=== PATIENT | female | born 1945 | race Caucasian/White ===

== ENCOUNTER 2016-12-01 06:10 | Day surgery (SDC) | payer MEDICARE ==
[~2016-12-01] VITALS: Ht 154.9 cm; Wt 80.0 kg
[2016-12-01] MEDS ORDERED: SODIUM CHLORIDE 0.9% 1,000 ML IV SCH (06:40)
[2016-12-01 07:08] VITALS: BP 115/61
[2016-12-01] MEDS ORDERED: MIDAZOLAM 1 MG/ML, 5ML ONE (07:56)
[2016-12-01] MEDS ORDERED: FENTANYL PF 100 MCG/2ML ONE (07:56)
== END 2016-12-01 10:30 ==
LOC: OUT 06:10
PROVIDERS: ATTEND Internal Medicine Nephrology
DX: I12.9 Hypertensive chronic kidney disease with stage 1 through stage 4 chronic kidney disease, or unspecified chronic kidney disease (principal); N18.4 Chronic kidney disease, stage 4 (severe); Z88.1 Allergy status to other antibiotic agents
CPT/HCPCS: 36415; 50200; 77012; 85610; 88300; 88329; 99156; 99157; J2250; J3010

== ENCOUNTER 2017-05-01 07:35 | Day surgery (SDC) | payer MEDICARE ==
[~2017-05-01] VITALS: Ht 154.9 cm; Wt 72.0 kg
[~2017-05-01 07:35] MED LIST: HEPARIN 1,000 UNITS/ML, 10ML ONE; PROTAMINE SULFATE 10 MG/ML, 5ML ONE
[2017-05-01 08:05] VITALS: BP 124/58
[2017-05-01] MEDS ORDERED: SODIUM CHLORIDE 0.9% 1,000 ML IV SCH (08:06)
[2017-05-01] MEDS ORDERED: PLEASE ENTER ALLERGIES MC SCH ×2 (09:00)
[2017-05-01] MEDS ORDERED: PLEASE ENTER HEIGHT AND WEIGHT MC SCH (09:00)
[2017-05-01] MEDS ORDERED: FURO80TA3 PO (09:03)
[2017-05-01] MEDS ORDERED: AMLO10TA2 PO (09:03)
[2017-05-01] MEDS ORDERED: VENTOLIN HFA (09:03)
[2017-05-01] MEDS ORDERED: FLUT1DIS3 INH (09:03)
[2017-05-01] MEDS ORDERED: ALBUTEROL (09:03)
[2017-05-01] MEDS ORDERED: ERGO500017 PO (09:03)
[2017-05-01] MEDS ORDERED: LEVO100T5 PO (09:03)
[2017-05-01] MEDS ORDERED: CARV-39 PO (09:03)
[2017-05-01] MEDS ORDERED: FENTANYL PF 100 MCG/2ML ONE (10:23)
[2017-05-01] MEDS ORDERED: PROPOFOL 10 MG/ML, 20ML ONE (10:24)
[2017-05-01] MEDS ORDERED: MIDAZOLAM 1 MG/ML, 2ML ONE (10:24)
[2017-05-01] MEDS ORDERED: CEFAZOLIN 1,000 MG ONE ×2 (10:25)
[2017-05-01] MEDS ORDERED: SODIUM CHLORIDE 0.9% PF 10ML ONE (10:25)
[2017-05-01] MEDS ORDERED: NEOSTIGMINE 1 MG/ML, 10ML ONE (10:58)
[2017-05-01] MEDS ORDERED: CLINDAMYCIN 150 MG/ML, 6ML ONE (10:58)
[2017-05-01] MEDS ORDERED: DEXAMETHASONE 4 MG/ML, 1ML ONE (11:04)
[2017-05-01] MEDS ORDERED: ONDANSETRON 2MG/ML, 2ML ONE (11:04)
[2017-05-01] MEDS ORDERED: FENTANYL PF 100 MCG/2ML IV PRN (11:30)
[2017-05-01] MEDS ORDERED: OXYcodone 5 MG/5 ML ORAL.SOL UDC PO PRN (11:30)
[2017-05-01] MEDS ORDERED: HYDROmorphone 1 MG/ML, 1ML IV PRN (11:30)
[2017-05-01] MEDS ORDERED: ONDANSETRON 2MG/ML, 2ML IVPush PRN (11:30)
[2017-05-01] MEDS ORDERED: LABETALOL 5MG/ML, 20ML IV PRN (11:30)
[2017-05-01] MEDS ORDERED: PROMETHAZINE 25 MG/ML, 1ML IV PRN (11:30)
[2017-05-01] MEDS ORDERED: hydrALAzine 20 MG/ML, 1ML IV PRN (11:30)
[2017-05-01] MEDS ORDERED: ALBUTEROL/IPRATROPIUM 2.5MG/0.5MG, 3 ML NPPB PRN (11:30)
[2017-05-01] MEDS ORDERED: MEPERIDINE/PF 25MG/0.5ML IVPush PRN (11:30)
[2017-05-01] MEDS ORDERED: OXYcodone 5 MG/5 ML ORAL.SOL UDC ONE (12:08)
== END 2017-05-01 16:40 ==
LOC: OUT 07:35
PROVIDERS: ATTEND Surgery Vascular Surgery
DX: I12.0 Hypertensive chronic kidney disease with stage 5 chronic kidney disease or end stage renal disease (principal); N18.6 End stage renal disease; J44.9 Chronic obstructive pulmonary disease, unspecified; Z88.1 Allergy status to other antibiotic agents
CPT/HCPCS: 36415; 36821; 80047; 93005; J0690; J1100; J1644; J2250; J2405; J2704; J2710; J3010; J7030; J2720